=== PATIENT | female | born 1935 | race Caucasian/White ===

== ENCOUNTER 2023-01-27 13:32 | Inpatient (IN) | payer MEDICARE, BC ==
[2023-01-27] MEDS ORDERED: hydrALAZINE 20 MG/ML VIAL ONE (14:00)
[2023-01-27 14:34] LABS: #Eosinphils 0.1 10x3/uL (0.0-0.5); #Monocytes 0.5 10x3/uL (0.0-1.1); #Neutrophils 4.3 10x3/uL (1.5-8.4); %Basophils 0.5 % (0.0-2.0); %Lymphocytes 18.4 % (18.0-47.0); %Neutrophils 71.8 % (40.0-75.0); Hematocrit 41.8 % (34.9-44.5); Hemoglobin 13.8 g/dL (12.0-15.5); Mean Corpuscular Hemoglobin 27.3 pg (27.0-33.0); Mean Corpuscular Volume 82.6 fl (81.6-98.3); Mean Platelet Volume 10.2 fl (7.4-10.4); Platelet Count 191 10x3/uL (150-450); RBC Distribution Width 13.2 % (11.5-14.5); Red Blood Cell (RBC) Count 5.06 10x6/uL (3.90-5.03)
[2023-01-27 15:03] LABS: ALT (SGPT) 26 U/L (8-55); AST (SGOT) 23 U/L (5-34); Albumin 4.4 g/dL (3.4-4.8); Alkaline Phosphatase 86 U/L (40-110); Anion Gap 17 mmol/L (10-20); BUN (Urea Nitrogen) 20 mg/dL (9.8-20.1); Bilirubin, Total 0.9 mg/dL (0.2-1.2); Calc. Creatinine Clearance 0 mL/min (70-130); Calcium 9.6 mg/dL (7.8-10.44); Carbon Dioxide 26 mmol/L (23-31); Chloride 105 mmol/L (98-107); Estimated GFR 60; Globulin 2.2 g/dL (2.4-3.5); Glucose 112 mg/dL (83-110); Potassium 4.1 mmol/L (3.5-5.1); Protein, Total 6.6 g/dL (5.8-8.1); Sodium 144 mmol/L (136-145)
[2023-01-27 15:09] LABS: Troponin I Less than 0.010 ng/mL (< 0.028)
[2023-01-27] MEDS ORDERED: Acetaminophen 325 MG TAB PO PRN (15:59)
[2023-01-27] MEDS ORDERED: Ondansetron PF 4 MG/2 ML Vial IVP PRN (15:59)
[2023-01-27 16:46] LABS: Thyroid Stimulating Hormone 0.8841 uIU/mL (0.35-4.94)
[2023-01-27 18:30] VITALS: BMI 23.9
[2023-01-27] MEDS: hydrALAZINE 20 MG/ML VIAL SLOW IVP PRN (19:01)
[2023-01-28] MEDS ORDERED: Losartan Potassium 50 MG TAB PO SCH (09:00)
[2023-01-28] MEDS ORDERED: Amlodipine 5 MG TAB PO SCH (12:00)
[2023-01-28] MEDS: Carvedilol 3.125 MG TAB PO SCH (17:52)
[2023-01-28] MEDS: Atorvastatin Calcium 10 MG TAB PO SCH (22:56)
[2023-01-28] MEDS: hydrALAZINE 20 MG/ML VIAL SLOW IVP PRN (22:59)
[2023-01-29] MEDS ORDERED: Zolpidem Tartrate 5 MG TAB PO PRN (00:51)
[2023-01-29] MEDS ORDERED: Zolpidem Tartrate 5 MG TAB PO SCH (01:00)
[2023-01-29] MEDS: Losartan 25 MG TAB PO SCH (08:36)
[2023-01-29] MEDS: Amlodipine 5 MG TAB PO SCH (08:37)
[2023-01-29] MEDS: Carvedilol 3.125 MG TAB PO SCH (08:37)
[2023-01-29] MEDS: Carvedilol 6.25 MG TAB PO SCH (17:22)
[2023-01-29] MEDS: hydrALAZINE 20 MG/ML VIAL SLOW IVP PRN (17:23)
[2023-01-29] MEDS: Atorvastatin Calcium 10 MG TAB PO SCH (22:26)
[2023-01-30 05:20] LABS: #Eosinphils 0.1 10x3/uL (0.0-0.5); #Monocytes 0.5 10x3/uL (0.0-1.1); #Neutrophils 4.2 10x3/uL (1.5-8.4); %Basophils 0.7 % (0.0-2.0); %Eosinophils 1.5 % (0.0-6.0); %Lymphocytes 19.3 % (18.0-47.0); %Monocytes 8.8 % (0.0-10.0); %Neutrophils 69.4 % (40.0-75.0); Hemoglobin 13.3 g/dL (12.0-15.5); Mean Corpuscular HGB CONC 32.4 g/dL (32.0-36.0); Mean Corpuscular Hemoglobin 27.4 pg (27.0-33.0); Mean Corpuscular Volume 84.5 fl (81.6-98.3); Mean Platelet Volume 10.6 fl (7.4-10.4); Platelet Count 164 10x3/uL (150-450); RBC Distribution Width 13.6 % (11.5-14.5); Red Blood Cell (RBC) Count 4.85 10x6/uL (3.90-5.03)
[2023-01-30 05:25] LABS: ALT (SGPT) 25 U/L (8-55); AST (SGOT) 36 U/L (5-34); Albumin 3.7 g/dL (3.4-4.8); Alkaline Phosphatase 66 U/L (40-110); Anion Gap 13 mmol/L (10-20); BUN (Urea Nitrogen) 20 mg/dL (9.8-20.1); Bilirubin, Direct 0.4 mg/dL (0.1-0.3); Bilirubin, Total 1.3 mg/dL (0.2-1.2); Calc. Creatinine Clearance 46 mL/min (70-130); Calcium 9.2 mg/dL (7.8-10.44); Carbon Dioxide 22 mmol/L (23-31); Chloride 110 mmol/L (98-107); Estimated GFR 76; Glucose 103 mg/dL (83-110); Potassium 4.4 mmol/L (3.5-5.1); Sodium 141 mmol/L (136-145)
[2023-01-30] MEDS: hydrALAZINE 20 MG/ML VIAL SLOW IVP PRN (06:14)
[2023-01-30] MEDS: Losartan 25 MG TAB PO SCH (08:13)
[2023-01-30] MEDS: Amlodipine 5 MG TAB PO SCH (08:13)
[2023-01-30] MEDS: Carvedilol 6.25 MG TAB PO SCH (08:14)
[2023-01-30] MEDS ORDERED: Labetalol HCl 100 MG/20 ML VIAL SLOW IVP PRN (09:09)
[2023-01-30] MEDS ORDERED: Diclofenac 1% 50 GM TOPICAL GEL TP PRN (09:17)
[2023-01-30] MEDS: Carvedilol 12.5 MG TAB PO SCH (17:08)
[2023-01-30] MEDS: Atorvastatin Calcium 10 MG TAB PO SCH (20:34)
[2023-01-31 04:36] LABS: #Monocytes 0.5 10x3/uL (0.0-1.1); #Neutrophils 6.4 10x3/uL (1.5-8.4); %Basophils 0.4 % (0.0-2.0); %Eosinophils 0.5 % (0.0-6.0); %Lymphocytes 11.4 % (18.0-47.0); %Monocytes 6.3 % (0.0-10.0); %Neutrophils 81.1 % (40.0-75.0); Hematocrit 37.5 % (34.9-44.5); Hemoglobin 12.2 g/dL (12.0-15.5); Mean Corpuscular HGB CONC 32.5 g/dL (32.0-36.0); Mean Corpuscular Hemoglobin 27.2 pg (27.0-33.0); Mean Corpuscular Volume 83.7 fl (81.6-98.3); Mean Platelet Volume 10.8 fl (7.4-10.4); Platelet Count 154 10x3/uL (150-450); RBC Distribution Width 13.4 % (11.5-14.5); Red Blood Cell (RBC) Count 4.48 10x6/uL (3.90-5.03); White Blood Cell (WBC) Count 7.9 10x3/uL (3.5-10.5)
[2023-01-31 04:49] LABS: Anion Gap 15 mmol/L (10-20); BUN (Urea Nitrogen) 18 mg/dL (9.8-20.1); Calc. Creatinine Clearance 51 mL/min (70-130); Calcium 8.9 mg/dL (7.8-10.44); Carbon Dioxide 20 mmol/L (23-31); Chloride 106 mmol/L (98-107); Estimated GFR 84; Glucose 106 mg/dL (83-110); Magnesium 1.9 mg/dL (1.6-2.6); Potassium 4.2 mmol/L (3.5-5.1); Sodium 137 mmol/L (136-145)
[2023-01-31] MEDS: Carvedilol 12.5 MG TAB PO SCH (08:34)
[2023-01-31] MEDS: PATIENT'S HOME MEDICATION PO SCH (08:37)
[2023-01-31] MEDS ORDERED: Amlodipine 5 MG TAB PO SCH ×2 (09:00→11:00)
[2023-01-31] MEDS: Carvedilol 25 MG TAB PO SCH (15:08)
[2023-01-31] MEDS ORDERED: Aspirin 325 mg Enteric Coated Tablet PO SCH (18:15)
[2023-01-31] MEDS: Atorvastatin Calcium 40 MG TAB PO SCH (20:37)
[2023-02-01 03:54] LABS: #Eosinphils 0.1 10x3/uL (0.0-0.5); #Monocytes 0.6 10x3/uL (0.0-1.1); #Neutrophils 4.9 10x3/uL (1.5-8.4); %Basophils 0.3 % (0.0-2.0); %Eosinophils 0.8 % (0.0-6.0); %Monocytes 8.4 % (0.0-10.0); %Neutrophils 74.3 % (40.0-75.0); Hematocrit 35.8 % (34.9-44.5); Hemoglobin 11.8 g/dL (12.0-15.5); Mean Corpuscular Hemoglobin 27.7 pg (27.0-33.0); Mean Platelet Volume 10.6 fl (7.4-10.4); Platelet Count 151 10x3/uL (150-450); RBC Distribution Width 13.3 % (11.5-14.5); Red Blood Cell (RBC) Count 4.26 10x6/uL (3.90-5.03); White Blood Cell (WBC) Count 6.6 10x3/uL (3.5-10.5)
[2023-02-01 04:09] LABS: Anion Gap 14 mmol/L (10-20); BUN (Urea Nitrogen) 15 mg/dL (9.8-20.1); Calc. Creatinine Clearance 49 mL/min (70-130); Calcium 8.7 mg/dL (7.8-10.44); Carbon Dioxide 21 mmol/L (23-31); Cardiac Risk 4.3 (Less than 4.5); Chloride 107 mmol/L (98-107); Cholesterol 156 mg/dl (< 200 Desired); Estimated GFR 81; Glucose 96 mg/dL (83-110); HDL Cholesterol 36 mg/dL (>60 Neg Risk); LDL Cholesterol, Calculated 103 mg/dL; Potassium 4.2 mmol/L (3.5-5.1); Sodium 138 mmol/L (136-145); Triglycerides 86 mg/dL (Less than 150)
[2023-02-01] MEDS: Amlodipine 10 MG TAB PO SCH (08:44)
[2023-02-01] MEDS: Carvedilol 25 MG TAB PO SCH ×2 (08:45→16:53)
[2023-02-01] MEDS: Aspirin 81 mg Enteric Coated Tablet PO SCH (08:45)
[2023-02-01] MEDS: PATIENT'S HOME MEDICATION PO SCH (08:45)
[2023-02-01] MEDS ORDERED: cloNIDine 0.1mg/24 Hour PATCH TD SCH (13:00)
[2023-02-01] MEDS ORDERED: cloNIDine 0.2mg/24 Hour PATCH TD SCH (13:00)
[2023-02-01] MEDS: Atorvastatin Calcium 40 MG TAB PO SCH (22:21)
[2023-02-02] MEDS: Aspirin 81 mg Enteric Coated Tablet PO SCH (08:14)
[2023-02-02] MEDS: Amlodipine 10 MG TAB PO SCH (08:14)
[2023-02-02] MEDS: Carvedilol 25 MG TAB PO SCH (08:14)
[2023-02-02] MEDS: PATIENT'S HOME MEDICATION PO SCH (08:15)
[2023-02-02 09:06] VITALS: TEMP 98
[2023-02-02 12:30] VITALS: BP 124/60
== END 2023-02-02 12:30 | disposition home or self-care (01) | DRG 305 ==
LOC: CSHERS 13:32 → CSHTELE 16:47 → OBSVTOIN 01-30 08:01
PROVIDERS: ADMIT Internal Medicine; ATTEND Family Medicine
DX: I16.0 Hypertensive urgency (principal); G45.9 Transient cerebral ischemic attack, unspecified; E78.5 Hyperlipidemia, unspecified; I35.0 Nonrheumatic aortic (valve) stenosis; I34.0 Nonrheumatic mitral (valve) insufficiency; E78.00 Pure hypercholesterolemia, unspecified; Z88.5 Allergy status to narcotic agent; Z88.0 Allergy status to penicillin; Z90.710 Acquired absence of both cervix and uterus
CPT/HCPCS: 36415; 36416; 70450; 70551; 71045; 76770; 80048; 80053; 80061; 80076; 82533; 83735; 83835; 84439; 84443; 84481; 84484; 85025; 93005; 93306; 93880; 93975; 96374; J0360; J1650